=== PATIENT | male | born 1970 | race Caucasian/White ===

== ENCOUNTER 2018-07-06 17:32 | Emergency (ER) | payer SELFPAY ==
--- NOTE | 2018-07-06 20:58 | ULT ---
VENOUS DOPPLER ULTRASOUND OF THE LEFT LOWER EXTREMITY: 07/06/18 HISTORY: Left lower extremity pain and edema. TECHNIQUE: Alanis scale ultrasound with color flow and spectral doppler imaging of the deep venous system of the l eft lower extremity is performed. FINDINGS: There is good flow, compression, and augmentation noted in the common femoral, femoral, deep femoral, popliteal, posterior tibial veins in the saphenofemoral junction. There is a 3.7 x 0.8 x 4.8 cm avascular fluid collection above the knee in the soft tissues. Also not ed is a 3.6 x 1.5 x 1.9 cm avascular fluid collection in the left ankle in the region of the bruise/e musa. IMPRESSION: No evidence of DVT in the left lower extremity. POS: EDUAR
[2018-07-06 22:30] LABS: #Basophils 0.1 thou/uL (0.0-0.2); #Eosinphils 0.3 thou/uL (0.0-0.7); #Lymphocytes 2.2 thou/uL (1.20-3.40); #Monocytes 0.5 thou/uL (0.11-0.59); #Neutrophils 2.7 thou/uL (1.40-6.50); %Basophils 1.9 % (0.0-1.0); %Eosinophils 4.9 % (0.0-10.0); %Lymphocytes 37.9 % (21.0-51.0); %Monocytes 8.5 % (0.0-10.0); %Neutrophils 46.7 % (42.0-75.0); Hemoglobin 15.4 g/dL (14.0-18.0); Mean Corpuscular HGB CONC 35.5 g/dL (32.0-36.0); Mean Corpuscular Hemoglobin 33.7 pg (27.0-31.0); Mean Platelet Volume 6.9 fL (7.4-10.4); Platelet Count 216 thou/uL (130-400); RBC Distribution Width 11.7 % (11.5-14.5); Red Blood Cell (RBC) Count 4.56 mill/uL (4.70-6.10); White Blood Cell (WBC) Count 5.8 thou/uL (4.8-10.8)
== END 2018-07-06 22:45 | disposition home or self-care (01) ==
LOC: ERS 17:32
DX: M25.562 Pain in left knee (principal)
CPT/HCPCS: 36415; 85025

== ENCOUNTER 2018-10-24 12:36 | Observation (INO) | payer SELFPAY ==
[~2018-10-24 12:36] MED LIST: ISOVUE-370 76%-LOCM 1 ML ONE
[2018-10-24 13:12] LABS: #Basophils 0.1 thou/uL (0.0-0.2); #Eosinphils 0.1 thou/uL (0.0-0.7); #Monocytes 0.7 thou/uL (0.11-0.59); #Neutrophils 3.8 thou/uL (1.40-6.50); %Basophils 1.7 % (0.0-1.0); %Lymphocytes 29.4 % (21.0-51.0); %Monocytes 10.3 % (0.0-10.0); %Neutrophils 56.7 % (42.0-75.0); Hemoglobin 14.6 g/dL (14.0-18.0); Mean Corpuscular HGB CONC 34.4 g/dL (32.0-36.0); Mean Corpuscular Hemoglobin 34.2 pg (27.0-31.0); Mean Corpuscular Volume 99.2 fL (78.0-98.0); Mean Platelet Volume 7.2 fL (7.4-10.4); Platelet Count 182 thou/uL (130-400); Red Blood Cell (RBC) Count 4.28 mill/uL (4.70-6.10); White Blood Cell (WBC) Count 6.7 thou/uL (4.8-10.8)
--- NOTE | 2018-10-24 13:16 | CT ---
CT Brain WO Con History: Level 2 stroke. Left arm weakness and numbness. Comparison: None. Findings: No acute hemorrhage or infarct. No midline shift or mass effect. Ventricular size and extra -axial CSF spaces are normal. Calvarium is intact. Paranasal sinuses and mastoids are clear aside from a right maxillary sinus muco sukhi retention cyst. Impression: No acute hemorrhage or infarct. Code: MAIK Bajwa
[2018-10-24 13:22] LABS: PTT 33.5 SEC (22.9-36.1); Prothrombin Time 14.8 SEC (12.0-14.7)
[2018-10-24 13:23] LABS: INR-International Normal Ratio 1.2
--- NOTE | 2018-10-24 13:29 | CT ---
CTA Angio Head W WO Con History: Level 2 stroke Comparison: CT brain same day Findings: Lung apices are clear. The vertebral arteries are codominant. Focal fenestration of the bas ilar artery. Common carotid arteries are patent. No hemodynamic significantly stenosis of the internal carotid art eries per NASCET criteria. Normal cervical spine alignment. Intracranial internal carotid arteries are patent. [place] of [place] is patent without stenosis, throm bosis, nor aneurysm formation. Impression: 1. Patent [place] of [place] without stenosis, thrombosis, nor aneurysm formation. 2. Basilar artery fenestration, a normal variant. 3. No hemodynamically significant stenosis of the internal carotid arteries per the NASCET criteria. Code CR: Dr. Bajwa Transcribed Date/Time: 10/24/2018 4:29 PM
[2018-10-24 13:31] LABS: ALT (SGPT) 80 U/L (8-55); AST (SGOT) 145 U/L (5-34); Albumin 4.1 g/dL (3.5-5.0); Alkaline Phosphatase 158 U/L (40-150); Anion Gap 17 mmol/L (10-20); BUN (Urea Nitrogen) 4 mg/dL (8.9-20.6); Bilirubin, Total 0.8 mg/dL (0.2-1.2); CK (CPK) 86 U/L (30-200); Calc. Creatinine Clearance 0 mL/min (70-130); Carbon Dioxide 18 mmol/L (22-29); Chloride 93 mmol/L (98-107); Estimated GFR-MDRD Greater than 90; Globulin 3.9 g/dL (2.4-3.5); Glucose 121 mg/dL (70-105); Potassium 4.3 mmol/L (3.5-5.1); Sodium 124 mmol/L (136-145)
[2018-10-24] MEDS ORDERED: Ondansetron PF 4 MG/2 ML Vial IVP PRN ×2 (15:39→21:05)
[2018-10-24] MEDS ORDERED: Acetaminophen 325 MG TAB PO PRN ×2 (15:39→21:05)
[2018-10-24] MEDS ORDERED: Ondansetron ODT 4 MG TAB SL PRN (15:39)
[2018-10-24 16:24] VITALS: BMI 29.5
[2018-10-24] MEDS ORDERED: Atorvastatin Calcium 40 MG TAB PO SCH (21:00)
[2018-10-24] MEDS ORDERED: Ondansetron ODT 4 MG TAB PO PRN (21:05)
[2018-10-24] MEDS ORDERED: Lorazepam 1 MG TAB PO PRN (21:05)
[2018-10-24] MEDS ORDERED: Lorazepam 2 MG/ML VIAL SLOW IVP PRN (21:05)
[2018-10-24] MEDS ORDERED: Folic Acid 1 MG TAB PO SCH (21:15)
[2018-10-24] MEDS ORDERED: Thiamine 100 MG TAB PO SCH (21:15)
[2018-10-24] MEDS: Sodium Chloride 0.9% 1,000 ML IV SCH (22:21)
--- NOTE | 2018-10-24 22:42 | HP ---
PRIMARY CARE PHYSICIAN: The patient currently does not have a primary care physician. CHIEF COMPLAINT: Left arm weakness and numbness. HISTORY OF PRESENT ILLNESS: Mr. Bettencourt is a pleasant 48-year-old gentleman who has no known past medical history. He has not seen a physician in over 6 years. He says that last night he admits that he was drinking heavily and says he drank he believes until he passed out and he says as he was "coming out of it," he started having some weakness in his left arm and the arm also felt numb. He says that he tried to "sleep it off" and see if it would get better in the morning. However, in the morning, his arm was still numb and weak and he says he could not "do anything with it." As a result, he came to the ER for evaluation. He denies any weakness in his left leg. He denies any chest pain or shortness of breath. No palpitations. He denies any trauma. I asked, if he may have fallen asleep on it or injured it and he says he really does not know, but he does not think so. He does admit to having some pain in the back of his shoulder off and on, but no other complaints. The patient was seen in the emergency room for possible stroke. A CT of the brain was done, which was negative. He also had a vascular ultrasound, which was negative for DVT and had a CT of the [place] and this was negative. REVIEW OF SYSTEMS: CONSTITUTIONAL: There has been no fevers or chills, no night sweats. No weight loss. HEENT: He denies any headaches. No dizziness. No visual changes. No sore throat, rhinorrhea. NECK: No neck pain, no adenopathy. PULMONARY: No hemoptysis. No cough. No wheezing. CARDIOVASCULAR: He denies any chest pain. No shortness of breath. No PND. No orthopnea. GASTROINTESTINAL: No abdominal pain. No nausea. No vomiting. No change in bowels. GENITOURINARY: No urinary frequency or hematuria. No hesitancy. NEUROLOGIC: As in history of present illness. MUSCULOSKELETAL: He does complain of some pain in his shoulder as previously mentioned, but no other joint pains or muscle pains. SKIN AND INTEGUMENT: There has been no complaints of any skin changes or rash. PAST MEDICAL HISTORY: He says he was told he had hypertension when he came to the ER a few months ago, but otherwise no known past medical history. PAST SURGICAL HISTORY: Negative. ALLERGIES: NO KNOWN DRUG ALLERGIES. SOCIAL HISTORY: He is . He has 2 children. He denies any tobacco use. He does admit to drinking 8-10 beers a day, sometimes more, sometimes less. He does agree that he does feel that he may drink a little bit too much. He is a full code. FAMILY HISTORY: Significant for hypertension, diabetes mellitus in his mother, heart disease in his father. CURRENT MEDICATIONS: None. PHYSICAL EXAMINATION: GENERAL: He is alert and oriented. He appears to be in no acute distress. He is well developed and well nourished. VITAL SIGNS: Blood pressure was 144/83, heart rate 95, respiratory rate of 10, temperature is 97.3. HEENT: Pupils are equal, round, and reactive to light and accommodation. Extraocular muscles are intact. His sclerae are anicteric. Throat there is no erythema. No exudates. NECK: No adenopathy, no bruits. LUNGS: Clear to auscultation. There is no wheezing, no rales, no rhonchi. CARDIOVASCULAR: He has a normal S1 and S2. I did not appreciate an S3 or S4. No murmurs, clicks or rubs. ABDOMEN: Obese. It is soft, nontender, and nondistended. Positive for bowel sounds. There is no rebound, no guarding. No organomegaly. EXTREMITIES: There is no clubbing or cyanosis. No edema. NEUROLOGICAL: He does have significant weakness in the left upper extremity. 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 His cranial nerves are intact. MUSCULOSKELETAL: There is no calf tenderness. No joint effusions. SKIN AND INTEGUMENT: Again no skin changes and no rashes. LABORATORY DATA: White blood cell count 6.7, hemoglobin 14.6, hematocrit is 42.4, and platelet count is 182, INR is 1.2. Sodium 124, potassium 4.3, chloride is 93, CO2 is 18, BUN of 4, creatinine 0.76, glucose is 121, total bilirubin is 0.8, AST is 145, ALT is 80, alkaline phosphatase is 158. Troponin is less than 0.010. IMAGING: His EKG is sinus rhythm with some nonspecific ST wave changes. Again, CT scan of the brain was negative for any acute intracranial process. ASSESSMENT: This is a pleasant 48-year-old gentleman who presents with left upper extremity weakness. This was after he drank excessively and "possibly even passed out." Some aspects of his physical exam are concerning for a peripheral neuropathy such as an ulnar neuropathy, especially given his drinking history. However, he has not been followed by a physician in many years. Therefore, it is reasonable to go ahead and rule out stroke as this is also a high possibility. He will be placed in observation and we will get an MRI of the brain to rule out stroke as well as an echocardiogram. He has already had a CT angiogram of the neck. 1. Alcohol abuse. He admits to drinking heavily. We will go ahead and place him on an ASE protocol and have Ativan as needed. 2. Hyponatremia. I suspect this is due to the excessive alcohol abuse and possibly beer potomania. We will place him on gentle hydration with normal saline and recheck his sodium in the a.m. If it does not improve, then we will check urine and serum osmolalities to help elucidate the etiology. The patient was also briefly counseled on alcohol abuse. Further recommendations to follow. Job ID: [id number]
[2018-10-25] MEDS: hydrALAZINE 20 MG/ML VIAL SLOW IVP PRN ×2 (04:47→11:55)
[2018-10-25 05:43] LABS: #Basophils 0.1 thou/uL (0.0-0.2); #Lymphocytes 1.1 thou/uL (1.20-3.40); #Monocytes 0.6 thou/uL (0.11-0.59); #Neutrophils 3.6 thou/uL (1.40-6.50); %Basophils 1.3 % (0.0-1.0); %Eosinophils 0.8 % (0.0-10.0); %Lymphocytes 20.2 % (21.0-51.0); %Monocytes 10.5 % (0.0-10.0); %Neutrophils 67.2 % (42.0-75.0); Hemoglobin 14.7 g/dL (14.0-18.0); Mean Corpuscular HGB CONC 34.5 g/dL (32.0-36.0); Mean Corpuscular Hemoglobin 34.1 pg (27.0-31.0); Mean Corpuscular Volume 98.6 fL (78.0-98.0); Mean Platelet Volume 7.3 fL (7.4-10.4); Platelet Count 164 thou/uL (130-400); RBC Distribution Width 11.8 % (11.5-14.5); Red Blood Cell (RBC) Count 4.32 mill/uL (4.70-6.10); White Blood Cell (WBC) Count 5.4 thou/uL (4.8-10.8)
[2018-10-25 06:03] LABS: Anion Gap 14 mmol/L (10-20); BUN (Urea Nitrogen) 7 mg/dL (8.9-20.6); Calc. Creatinine Clearance 141 mL/min (70-130); Carbon Dioxide 24 mmol/L (22-29); Cardiac Risk 3.6 (Less than 4.5); Chloride 98 mmol/L (98-107); Cholesterol 150 mg/dl (< 200 Desired); Estimated GFR-MDRD Greater than 90; Glucose 148 mg/dL (70-105); HDL Cholesterol 42 mg/dL (>60 Neg Risk); LDL Cholesterol, Calculated 98 mg/dL; Potassium 3.9 mmol/L (3.5-5.1); Sodium 132 mmol/L (136-145); Triglycerides 52 mg/dL (Less than 150)
[2018-10-25] MEDS: cloNIDine 0.1 MG TAB PO PRN ×2 (07:51→13:39)
[2018-10-25 07:52] LABS: Hemoglobin A1c 5.6 % (4.0-6.0)
--- NOTE | 2018-10-25 08:45 | MRI ---
MRI BRAIN WITHOUT CONTRAST: HISTORY: TIA, left arm weakness and numbness CORRELATION: CT scan from 10/24/2018. FINDINGS: No restricted diffusion is seen. There are few foci of T2 prolongation in the periventricular white m atter, consistent with mild chronic small vessel ischemic disease. The ventricular size is appropriate and the basilar cisterns are patent. No evidence of acute infarct, hemorrhage, midline shift or abnormal extra-axial fluid collections is seen. There is mucosal disease in the paranasal sinuses. IMPRESSION: No evidence of acute intracranial process.
[2018-10-25] MEDS ORDERED: Multivitamin W/ Minerals 1 TAB PO SCH (09:00)
[2018-10-25] MEDS ORDERED: Thiamine 100 MG TAB PO SCH (09:00)
[2018-10-25] MEDS ORDERED: Folic Acid 1 MG TAB PO SCH (09:00)
[2018-10-25] MEDS ORDERED: Lisinopril 5 MG TAB PO SCH (09:00)
[2018-10-25] MEDS ORDERED: Aspirin 325 mg Enteric Coated Tablet PO SCH (09:00)
[2018-10-25] MEDS: Sodium Chloride 0.9% 1,000 ML IV SCH ×2 (09:48→11:59)
[2018-10-25 15:24] VITALS: BP 162/94; TEMP 98.5
[2018-10-26] MEDS ORDERED: Amlodipine 5 MG TAB PO SCH (09:00)
--- NOTE | 2018-10-26 13:43 | DIS ---
DATE OF ADMISSION: 10/24/2018 DATE OF DISCHARGE: 10/25/2018 PRIMARY CARE PHYSICIAN: None. DISCHARGE DISPOSITION: Home. DISCHARGE DIAGNOSES: 1. 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 2. Alcohol abuse. 3. Hypertensive urgency. 4. Prediabetes. DISCHARGE MEDICATIONS: Include; 1. Lisinopril 10 mg daily. 2. Amlodipine 5 mg daily. 3. Folic acid 1 mg daily. 4. Ativan 1 mg q.4 hours as needed. 5. Theragran-M one tablet daily. 6. Thiamine 100 mg daily. PROCEDURES DONE DURING THE ADMISSION: The patient had a CT scan of the brain, which was negative for any acute hemorrhage or infarct. The patient also had a CT scan of the [place] and neck, in which there was a patent [place], there was no thrombosis or aneurysm. No significant flow-limiting disease. MRI of the brain was also negative for any infarct. He also had an echocardiogram due to his severe hypertension. The EF was estimated at 55% to 60%. No significant ventricular hypertrophy. CODE STATUS: Full code. ALLERGIES: NO KNOWN DRUG ALLERGIES. HOSPITAL COURSE: Mr. Bettencourt is a pleasant 48-year-old gentleman, who presented to the emergency room after he noted weakness in his left upper extremity. He admits that he had drank excessively to the point where he passed out and awoke with the weakness in the left arm. He was brought in to the hospital under observation due to concerns that it could possibly be a stroke, especially given his extremely elevated blood pressure. The MRI was negative and his symptoms seemed more that he had difficulty extending his hand as well as some weakness in the upper part of the arm at the shoulder, but it appeared to be more of a radial palsy. This actually improved during the course of his stay in the hospital. His blood pressure was also controlled. He had systolic blood pressures in the 200s initially and at the time of discharge, the systolic was around 160. He was discharged home on oral medications for his blood pressure. He was counseled extensively on the need for compliance with blood pressure medicine as well as to stop drinking and that he will need close outpatient followup on a regular basis. Information for community clinics were given to the patient also at the time of discharge. Job ID: [id number]
--- NOTE | 2018-10-31 13:30 | EKG ---
Test Reason : Blood Pressure : / mmHG Vent. Rate : 091 BPM Atrial Rate : 091 BPM P-R Int : 152 ms QRS Dur : 086 ms QT Int : 384 ms P-R-T Axes : 064 009 054 degrees QTc Int : 472 ms Normal sinus rhythm Possible Left atrial enlargement Borderline ECG Confirmed by THAI HUMPHRIES DO ([id number]), editor farm journal SONI STEELE ([id number] on 10/31/2018 1:29:45 PM Referred By: YANDEL Confirmed By:THAI HUMPHRIES DO
== END 2018-10-25 15:53 | disposition home or self-care (01) ==
LOC: ERS 12:36 → 2SE 15:49
PROVIDERS: ADMIT Internal Medicine; ATTEND Internal Medicine
DX: R20.0 Anesthesia of skin (principal); R53.1 Weakness; I16.0 Hypertensive urgency; F10.10 Alcohol abuse, uncomplicated; R73.03 Prediabetes; I10 Essential (primary) hypertension; E87.1 Hypo-osmolality and hyponatremia
CPT/HCPCS: 36415; 36416; 70450; 70496; 70498; 70551; 80048; 80053; 80061; 82550; 83036; 84484; 85025; 85610; 85730; 93005; 93306; 96374; 96376; G0378; J0360; Q9966